=== PATIENT | male | born 1955 | race Caucasian/White ===

== ENCOUNTER 2017-11-16 14:12 | Inpatient (IN) | payer OTHER ==
[~2017-11-16] VITALS: Ht 182.9 cm; Wt 95.1 kg
[~2017-11-16 14:12] MED LIST: ANTI DEPRESSANT; BLOOD PRESSURE; CELEXA20 MG PO; CIPRO500 MG PO; CITALOPRAM HBR20 M1 G-TUBE; METRONIDAZOLE500 MG PO; NOHOMEMEDS; SEROQUEL50 MG PO; ZESTRIL,PRINIVIL5 MG PO
[2017-11-16] MEDS ORDERED: XANAX0.5 MG PO (14:34)
[2017-11-16] MEDS ORDERED: TYLENOL REGULA325 MG PO (14:35)
[2017-11-16] MEDS ORDERED: PYRIDIUM200 MG PO (14:37)
[2017-11-16] MEDS ORDERED: NORVASC5 MG PO (14:38)
[2017-11-16] MEDS ORDERED: WELLBUTRIN XL300 MG PO (14:40)
[2017-11-16 14:41] VITALS: BP 130/72
[2017-11-16] MEDS ORDERED: CELEXA40 MG PO (14:42)
[2017-11-16] MEDS ORDERED: LATUDA40 MG PO (14:45)
[2017-11-16] MEDS ORDERED: NICODERM CQ1 EAC1 TD (14:46)
[2017-11-16] MEDS ORDERED: SEROQUEL300 MG PO (14:52)
[2017-11-16] MEDS ORDERED: XANAX1 MG PO (14:55)
[2017-11-16] MEDS ORDERED: MINIPRESS1 MG PO (14:57)
[2017-11-16] MEDS ORDERED: PROVENTIL,2.5 MG/0.5 IH (14:59)
[2017-11-16] MEDS ORDERED: PRAVACHOL80 MG PO (15:01)
[2017-11-16] MEDS ORDERED: NIZORAL 2% CREA15 GM TP (15:02)
[2017-11-16] MEDS ORDERED: ROBITUSSIN DM118 ML PO (15:06)
[2017-11-16] MEDS ORDERED: ELIQUIS2.5 MG PO (15:07)
[2017-11-16] MEDS ORDERED: TUMS500 MG PO (15:09)
[2017-11-16] MEDS ORDERED: PROTONIX40 MG PO (15:09)
[2017-11-16] MEDS ORDERED: ROBAXIN500 MG PO (15:10)
[2017-11-16] MEDS ORDERED: SENNA-DOCUSATE1 EAC1 PO (15:12)
[2017-11-16] MEDS ORDERED: PERCOCET 5/31 TABLET PO (15:14)
[2017-11-16] MEDS ORDERED: BACID1 CAP PO ×2 (15:17→15:18)
[2017-11-16 16:52] LABS: HEMATOCRIT 38.7 % (38.0-50.0); HEMOGLOBIN 12.3 G/DL (12.5-16.6); MCH 28.5 PG (29.0-34.0); MCHC 31.8 G/DL (30.0-36.0); MCV 89.6 FL (86-99); PLATELET COUNT 380 K/uL (156-360); RBC DIS.WIDTH-CV 13.8 % (11.8-14.6); RBC DIS.WIDTH-SD 45.1 % (39-53); RED BLOOD COUNT 4.32 M/uL (4.00-5.50); WHITE BLOOD COUNT 13.7 K/uL (4.1-10.2)
[2017-11-16 17:14] LABS: ALBUMIN 3.7 G/DL (3.2-4.8); ALKALINE PHOSPHATASE 85 IU/L (3-129); ALT (GPT) 27 IU/L (3-49); AST (GOT) 37 IU/L (2-34); CHLORIDE 103 MEQ/L (99-109); CREATININE 0.9 MG/DL (0.6-1.3); GFR ESTIMATE (CALCULATED) > 59 mL/min/ (58.99-99999); GLUCOSE 131 mg/dL (70-99); SODIUM 135 MEQ/L (136-147); TOTAL BILIRUBIN 0.3 MG/DL (0.0-1.0); TOTAL PROTEIN 7.1 G/DL (6.4-8.3); UREA NITROGEN (BUN) 20 mg/dL (9-23)
[2017-11-16 22:48] VITALS: BP 133/68
[2017-11-17 05:50] VITALS: BP 109/56
[2017-11-17 15:27] VITALS: BP 126/73
[2017-11-18 05:36] VITALS: BP 115/61
[2017-11-18 07:44] LABS: BASOPHIL (%) 0.6 % (0-1); BASOPHIL COUNT 0.1 K/uL (0-0.1); EOSINOPHIL (%) 2.9 % (0-5); EOSINOPHIL COUNT 0.3 K/uL (0-0.3); HEMATOCRIT 42.3 % (38.0-50.0); HEMOGLOBIN 13.3 G/DL (12.5-16.6); IMMATURE GRANULOCYTE (%) 1.9 % (0.0-0.7); LYMPHOCYTE (%) 35.1 % (15-42); LYMPHOCYTE COUNT 4.2 K/uL (1.0-2.8); MCH 28.9 PG (29.0-34.0); MCHC 31.4 G/DL (30.0-36.0); MCV 91.8 FL (86-99); MONOCYTE (%) 6.5 % (3-12); MONOCYTE COUNT 0.8 K/uL (0-0.8); NEUTROPHIL COUNT 6.3 K/uL (1.8-6.4); PLATELET COUNT 410 K/uL (156-360); RBC DIS.WIDTH-CV 14.2 % (11.8-14.6); RBC DIS.WIDTH-SD 47.3 % (39-53); RED BLOOD COUNT 4.61 M/uL (4.00-5.50); WHITE BLOOD COUNT 11.9 K/uL (4.1-10.2)
[2017-11-18 08:16] LABS: ALBUMIN 3.9 G/DL (3.2-4.8); ALKALINE PHOSPHATASE 87 IU/L (3-129); ALT (GPT) 40 IU/L (3-49); AST (GOT) 45 IU/L (2-34); CHLORIDE 98 MEQ/L (99-109); CREATININE 1.1 MG/DL (0.6-1.3); GFR ESTIMATE (CALCULATED) > 59 mL/min/ (58.99-99999); GLUCOSE 108 mg/dL (70-99); POTASSIUM 3.7 MEQ/L (3.7-5.4); SODIUM 139 MEQ/L (136-147); TOTAL PROTEIN 6.7 G/DL (6.4-8.3); UREA NITROGEN (BUN) 18 mg/dL (9-23)
[2017-11-18 08:18] LABS: TOTAL BILIRUBIN 0.4 MG/DL (0.0-1.0)
[2017-11-18 14:48] VITALS: BP 130/75
[2017-11-18 19:59] VITALS: BP 149/72
[2017-11-19 06:02] VITALS: BP 107/59
[2017-11-19 15:21] VITALS: BP 137/79
[2017-11-20 04:51] VITALS: BP 105/55
[2017-11-20 07:45] VITALS: BP 130/65
[2017-11-20 15:30] VITALS: BP 136/76
[2017-11-20 20:41] VITALS: BP 134/63
[2017-11-21 04:38] VITALS: BP 122/64
[2017-11-21 05:56] LABS: HEMATOCRIT 37.2 % (38.0-50.0); HEMOGLOBIN 11.5 G/DL (12.5-16.6); MCH 27.9 PG (29.0-34.0); MCHC 30.9 G/DL (30.0-36.0); MCV 90.3 FL (86-99); PLATELET COUNT 353 K/uL (156-360); RBC DIS.WIDTH-CV 13.8 % (11.8-14.6); RBC DIS.WIDTH-SD 45.6 % (39-53); RED BLOOD COUNT 4.12 M/uL (4.00-5.50); WHITE BLOOD COUNT 8.6 K/uL (4.1-10.2)
[2017-11-21 06:45] VITALS: BP 127/70
[2017-11-21 06:51] LABS: ALBUMIN 3.3 G/DL (3.2-4.8); ALKALINE PHOSPHATASE 77 IU/L (3-129); ALT (GPT) 15 IU/L (3-49); CHLORIDE 102 MEQ/L (99-109); GFR ESTIMATE (CALCULATED) > 59 mL/min/ (58.99-99999); GLUCOSE 105 mg/dL (70-99); SODIUM 141 MEQ/L (136-147); TOTAL PROTEIN 5.7 G/DL (6.4-8.3); UREA NITROGEN (BUN) 13 mg/dL (9-23)
[2017-11-21 06:59] LABS: AST (GOT) 13 IU/L (2-34); TOTAL BILIRUBIN 0.3 MG/DL (0.0-1.0)
[2017-11-21 15:28] VITALS: BP 121/70
[2017-11-22 05:42] VITALS: BP 109/57
[2017-11-22] MEDS ORDERED: ELIQUIS2.5 MG PO (12:28)
[2017-11-22] MEDS ORDERED: NICODERM CQ1 EAC1 TD (12:28)
[2017-11-22] MEDS ORDERED: PERCOCET 5/31 TABLET PO (12:28)
[2017-11-22] MEDS ORDERED: NORVASC5 MG PO (13:17)
[2017-11-22] MEDS ORDERED: MINIPRESS1 MG PO (13:17)
== END 2017-11-22 13:27 | disposition home health service (06) | DRG 561 ==
LOC: 3WEST 14:12 → ENPENDDIS 11-22 → 3WEST 11-22 13:27
PROVIDERS: Physical Medicine & Rehabilitation; Physical Medicine & Rehabilitation Pain Medicine
PROC: F07M0ZZ Range of Motion and Joint Mobility Treatment of Musculoskeletal System - Whole Body (ICD-10-PCS; principal; 2017-11-16)
DX: S82.892D Other fracture of left lower leg, subsequent encounter for closed fracture with routine healing (principal); R26.2 Difficulty in walking, not elsewhere classified; R53.1 Weakness; F31.9 Bipolar disorder, unspecified; F41.9 Anxiety disorder, unspecified; E87.6 Hypokalemia; I10 Essential (primary) hypertension; F10.21 Alcohol dependence, in remission; N20.0 Calculus of kidney; N40.0 Benign prostatic hyperplasia without lower urinary tract symptoms; K59.00 Constipation, unspecified; F14.10 Cocaine abuse, uncomplicated; Z60.2 Problems related to living alone; E66.9 Obesity, unspecified; Z87.442 Personal history of urinary calculi; Z87.891 Personal history of nicotine dependence; Z91.19 Patient's noncompliance with other medical treatment and regimen; Z68.28 Body mass index [BMI] 28.0-28.9, adult; Z87.440 Personal history of urinary (tract) infections
CPT/HCPCS: 80053; 85025; 85027; 97110 GO; 97530 GP